=== PATIENT | female | born 1975 | race African-American/Black ===

== ENCOUNTER 2018-10-26 07:55 | Emergency (ER) | payer SELFPAY ==
[2018-10-26] MEDS ORDERED: KETOROLAC TROMETHAMINE 60 MG/2 ML VIAL ONE (08:22)
== END 2018-10-26 08:37 | disposition home or self-care (01) ==
LOC: EDH 07:55
DX: M23.8X2 Other internal derangements of left knee (principal); X58.XXXA Exposure to other specified factors, initial encounter; Y93.89 Activity, other specified; Y92.89 Other specified places as the place of occurrence of the external cause; Y99.8 Other external cause status
CPT/HCPCS: 96372; 99283; J1885